=== PATIENT | male | born 1985 | race Two or more races ===

== ENCOUNTER 2017-08-21 02:46 | Emergency (ER) | payer SELFPAY ==
[~2017-08-21] VITALS: Ht 165.1 cm; Wt 52.2 kg
[2017-08-21 02:55] VITALS: BP 136/88
== END 2017-08-21 08:05 | disposition left against medical advice (07) ==
LOC: ER 02:49
DX: R06.02 Shortness of breath (principal); Z53.21 Procedure and treatment not carried out due to patient leaving prior to being seen by health care provider
CPT/HCPCS: 93005